=== PATIENT | male | born 1995 | race Caucasian/White ===

== ENCOUNTER → 2022-05-19 | Outpatient (CLI) | payer BC ==
[~2022-05-19] VITALS: Ht 187 cm; Wt 182.0 kg
[~2022-05-19] MED LIST: CATHETER FLUSH 10 ML SYR IVP PRN
[2022-05-19 09:03] VITALS: BP 136/89
--- NOTE | 2022-05-19 17:52 | NUCLEAR STRESS TEST ---
TREADMILL NUCLEAR STRESS TEST Date of procedure: 05/19/2022. Primary care provider: No local physician. Admitting physician: Ryan Sutton Jr., MD. INDICATION: Paroxysmal atrial fibrillation. BASELINE ELECTROCARDIOGRAM: Sinus rhythm with low voltage in the precordial leads, otherwise unremarkable tracing. STRESS TEST PROCEDURE: The patient was exercised for a total of 7 minutes and 0 seconds of the standard Santino protocol achieving a maximum MET level of 7.1. The resting heart rate was 75 bpm and the peak heart rate was 178 bpm, which represents 91% of the maximum predicted heart rate. The resting blood pressure was 136/89 mmHg and the peak blood pressure was 253/104 mmHg. This represents a normal heart rate and a hypertensive blood pressure response to exercise. The test was stopped due to target heart rate attained. There was no chest discomfort during the test. There were no arrhythmias during the test. There were no significant stress induced electrocardiogram changes. The patient exhibited fair exercise capacity for age. NUCLEAR PROCEDURE: The patient was administered 8.6 mCi of intravenous technetium 99m Tetrofosmin at rest for the rest images. The patient was subsequently administered 25 mCi of intravenous technetium 99 M Tetrofosmin at peak stress for the stress images. Following an appropriate wait after each injection, imaging was obtained. The images were subsequently processed and reformatted in the usual views. Gated imaging was obtained. The image quality was adequate with a moderate degree of gastrointestinal attenuation artifact. CT attenuation correction was used as a adjunct to standard imaging. Both the corrected and uncorrected images were reviewed for interpretation. NUCLEAR RESULTS: There was a small, moderate intensity, partly reversible distal lateral and apical defect with a small amount of inducible ischemia with a summed stress score of 7 and a summed difference score of 2. There was normal left ventricular chamber size with an end-diastolic volume of 80 mL and an end- systolic volume of 24 mL. There was no evidence of transient ischemic dilatation. The TID ratio was 0.72. There was normal wall motion in all segments with a calculated ejection fraction of 70%. IMPRESSION: 1. Normal heart rate and a hypertensive blood pressure response to exercise. 2. There was no chest discomfort, arrhythmias, or electrocardiogram changes during the test. 3. The patient exhibited fair exercise capacity for age at 7 minutes of the Santino protocol. 4. There was a small, moderate intensity, partly reversible distal lateral and apical defect with a small amount of inducible ischemia with a summed stress score of 7 and a summed difference score of 2. 5. There was normal wall motion in all segments with a calculated ejection fraction of 70%. 6. This is an abnormal result although represents a low risk for possible future coronary ischemic events. Certain portions of this document may have been dictated utilizing voice recognition technology. Inherent to this technology, typographical and grammatical errors may exist. As much as I am diligent to identify and correct these mistakes, some errors may remain in the document. RYAN SUTTON JR, MD May 19, 2022 17:52
== END ==
LOC: CARD 08:00
PROVIDERS: ATTEND Internal Medicine Cardiovascular Disease
DX: I48.0 Paroxysmal atrial fibrillation (principal)
CPT/HCPCS: 78452; 93017; A9502

== ENCOUNTER 2022-05-30 07:54 | Outpatient (CLI) | payer BC | END 2022-05-30 08:10 | LOC: SLEEP 07:54 | PROVIDERS: ATTEND Internal Medicine Cardiovascular Disease | DX: G47.33 Obstructive sleep apnea (adult) (pediatric) (principal) | CPT/HCPCS: G0399 ==